=== PATIENT | female | born 1965 | race Caucasian/White ===

== ENCOUNTER 2018-01-14 12:22 | Inpatient (IN) | payer OTHER ==
[2018-01-14] VITALS (8 sets, daily range): BP systolic 105–120; BP diastolic 47–79
[~2018-01-14] VITALS: Ht 151.1 cm; Wt 67.9 kg
[2018-01-14] MEDS ORDERED: SODIUM CHLORIDE FLUSH 10ML SYR IVF ONE (13:00)
[2018-01-14 13:39] LABS: ALANINE AMINOTRANSFERASE 28 U/L (12-78); ALBUMIN 3.7 g/dL (3.4-5.0); ANION GAP 6 mmol/L (5-15); CALCIUM 8.6 mg/dL (8.5-10.1); CHLORIDE 103 mmol/L (98-107); CREATININE 1.09 mg/dL (0.55-1.02)
[2018-01-14 13:42] LABS: ALKALINE PHOSPHATASE 68 U/L (45-117); BILIRUBIN,TOTAL 1.3 mg/dL (0.2-1.0); TOTAL PROTEIN 7.4 g/dL (6.4-8.2)
[2018-01-14 13:44] LABS: MEAN CORPUSCULAR HEMOGLOBIN 41.9 pg (27.0-34.8); MEAN CORPUSCULAR HGB CONC 33.5 g/dL (32.4-35.8); MEAN CORPUSCULAR VOLUME 125.1 fL (80-100); MEAN PLATELET VOLUME 7.6 fL (7.4-10.4); PLATELET COUNT 177 x10^3/uL (130-400); RED BLOOD COUNT 1.24 x10^6/uL (3.82-5.3); RED CELL DISTRIBUTION WIDTH 28.4 % (9.6-15.2)
[2018-01-14] MEDS ORDERED: LIDOCAINE-MPF 1%, 5ML ONE (13:53)
[2018-01-14 14:08] LABS: MD YES
[2018-01-14 14:13] LABS: LYMPHS% (MANUAL) 29 % (22-44); MONOS#(MANUAL) 0.14 x10^3/uL (0.3-2.7); MONOS% (MANUAL) 2 % (2-9); NRBC % (MANUAL) 1 % (0-1); SEG#(MANUAL) 4.76 x10^3/uL (1.8-6.8); SEGS% (MANUAL) 69 % (42-75)
[2018-01-14 14:17] LABS: ANISOCYTOSIS 3+
[2018-01-14 14:18] LABS: MICROCYTOSIS 1+
[2018-01-14 14:20] LABS: HYPOCHROMIA 1+; OVALOCYTES 2+; POLYCHROMASIA 1+
[2018-01-14 14:24] LABS: <PLATELET ESTIMATE> ADEQUATE; <PLT MORPHOLOGY> NORMAL PLT MORPH
[2018-01-14] MEDS ORDERED: AZIT500T PO (15:03)
[2018-01-14 15:05] LABS: ABSOLUTE RETICS # 0.034 x10^6/uL (0.5-2.5); RETICULOCYTE COUNT % 2.69 % (0.5-1.5)
[2018-01-14 15:10] LABS: RED BLOOD COUNT 1.24 x10^6/uL (3.82-5.3)
[2018-01-14] MEDS ORDERED: ONDANSETRON 2MG/ML, 2ML IVPush PRN (15:30)
[2018-01-14] MEDS ORDERED: ONDANSETRON ODT 4 MG PO PRN (15:30)
[2018-01-14] MEDS ORDERED: LABETALOL 5MG/ML, 20ML IVPush PRN (15:30)
[2018-01-14 15:40] LABS: INTERNATIONAL NORMALIZED RATIO 1.11 (0.93-1.1); PROTHROMBIN TIME 11.5 Seconds (9.6-11.5)
[2018-01-14 16:12] LABS: FOLATE LEVEL 1.8 ng/mL (3.1-17.5); FREE T4 (FREE THYROXINE) 0.99 ng/dL (0.76-1.46)
[2018-01-14] MEDS ORDERED: CYANOCOBALAMIN 1,000 MCG/ML, 1ML IM ONE (18:00)
[2018-01-14] MEDS: FOLIC ACID 1 MG TABLET PO SCH (18:32)
[2018-01-14 19:02] LABS: CLOSTRIDIUM DIFFICILE ANTIGEN NEGATIVE; CLOSTRIDIUM DIFFICILE TOXIN NEGATIVE (Negative)
[2018-01-15 00:59] LABS: MICROSCOPIC INDICATED
[2018-01-15 01:06] LABS: CULTURE INDICATED? NO
[2018-01-15 02:07] VITALS: BP 117/76
[2018-01-15 05:19] LABS: MEAN CORPUSCULAR HEMOGLOBIN 36.3 pg (27.0-34.8); MEAN CORPUSCULAR HGB CONC 34.1 g/dL (32.4-35.8); MEAN CORPUSCULAR VOLUME 106.5 fL (80-100); MEAN PLATELET VOLUME 7.6 fL (7.4-10.4); PLATELET COUNT 161 x10^3/uL (130-400); RED CELL DISTRIBUTION WIDTH 33.5 % (9.6-15.2)
[2018-01-15 05:26] LABS: ALANINE AMINOTRANSFERASE 25 U/L (12-78); ALBUMIN 3.5 g/dL (3.4-5.0); ANION GAP 9 mmol/L (5-15); CALCIUM 8.1 mg/dL (8.5-10.1); CHLORIDE 106 mmol/L (98-107); CREATININE 0.98 mg/dL (0.55-1.02)
[2018-01-15 05:28] LABS: ALKALINE PHOSPHATASE 64 U/L (45-117); BILIRUBIN,TOTAL 1.4 mg/dL (0.2-1.0); TOTAL PROTEIN 7.1 g/dL (6.4-8.2)
[2018-01-15 05:49] LABS: BASOPHILS # (AUTO) 0.01 x10^3/uL (0-0.1); BASOPHILS % (AUTO) 0 % (0-1); EOSINOPHILS # (AUTO) 0.14 x10^3/uL (0-0.4); EOSINOPHILS % (AUTO) 2 % (1-7); LYMPHOCYTES # (AUTO) 1.67 x10^3/uL (1-3.4); LYMPHOCYTES % (AUTO) 29 % (22-44); MD SCAN; MONOCYTES # (AUTO) 0.18 x10^3/uL (0.2-0.8); MONOCYTES % (AUTO) 3 % (2-9); NEUTROPHILS # (AUTO) 3.86 x10^3/uL (1.8-6.8); NEUTROPHILS % (AUTO) 66 % (42-75)
[2018-01-15 07:51] VITALS: BP 113/74
[2018-01-15] MEDS ORDERED: FOLIC ACID 1 MG TABLET PO SCH (09:00)
[2018-01-15] MEDS ORDERED: CYANOCOBALAMIN 1,000 MCG/ML, 1ML IM ONE (10:00)
[2018-01-15] MEDS ORDERED: OMNIPAQUE 350 MG/ML, 100ML BOTTLE ONE (11:35)
[2018-01-15 12:29] VITALS: BP 129/85
[2018-01-15] MEDS: FOLIC ACID 1 MG TABLET PO SCH (12:29)
[2018-01-15] MEDS: CEFTRIAXONE PMX 1GM/50ML 50 ML IV SCH (17:47)
[2018-01-15 17:56] LABS: MEAN CORPUSCULAR HEMOGLOBIN 36.1 pg (27.0-34.8); MEAN CORPUSCULAR HGB CONC 33.8 g/dL (32.4-35.8); MEAN CORPUSCULAR VOLUME 106.9 fL (80-100); MEAN PLATELET VOLUME 7.6 fL (7.4-10.4); PLATELET COUNT 179 x10^3/uL (130-400); RED BLOOD COUNT 2.41 x10^6/uL (3.82-5.3); RED CELL DISTRIBUTION WIDTH 33.8 % (9.6-15.2)
[2018-01-15 18:05] LABS: ALANINE AMINOTRANSFERASE 27 U/L (12-78); ALBUMIN 3.6 g/dL (3.4-5.0); ANION GAP 10 mmol/L (5-15); CALCIUM 8.4 mg/dL (8.5-10.1); CHLORIDE 104 mmol/L (98-107); CREATININE 0.99 mg/dL (0.55-1.02)
[2018-01-15 18:07] LABS: ALKALINE PHOSPHATASE 70 U/L (45-117); BILIRUBIN,TOTAL 1.4 mg/dL (0.2-1.0); TOTAL PROTEIN 7.4 g/dL (6.4-8.2)
[2018-01-15 18:12] LABS: ANISOCYTOSIS 3+; BASOPHILS # (AUTO) 0.04 x10^3/uL (0-0.1); BASOPHILS % (AUTO) 1 % (0-1); EOSINOPHILS # (AUTO) 0.18 x10^3/uL (0-0.4); EOSINOPHILS % (AUTO) 2 % (1-7); LYMPHOCYTES # (AUTO) 1.68 x10^3/uL (1-3.4); LYMPHOCYTES % (AUTO) 20 % (22-44); MD MORPH REVIEW ONLY; MONOCYTES # (AUTO) 0.15 x10^3/uL (0.2-0.8); MONOCYTES % (AUTO) 2 % (2-9); NEUTROPHILS # (AUTO) 6.34 x10^3/uL (1.8-6.8); NEUTROPHILS % (AUTO) 76 % (42-75)
[2018-01-15 18:13] LABS: MICROCYTOSIS 1+; OVALOCYTES 2+; POLYCHROMASIA 1+
[2018-01-15 18:14] LABS: <PLATELET ESTIMATE> ADEQUATE; <PLT MORPHOLOGY> NORMAL PLT MORPH
[2018-01-15 18:15] LABS: TEAR DROPS 1+
[2018-01-15] MEDS: METRONIDAZOLE PMX 500MG/100ML 100 ML IV SCH (18:42)
[2018-01-15 19:44] VITALS: BP 99/59
[2018-01-15] MEDS ORDERED: LORazepam 1MG TABLET PO PRN (20:30)
[2018-01-16] MEDS: METRONIDAZOLE PMX 500MG/100ML 100 ML IV SCH ×3 (01:43→19:24)
[2018-01-16 02:15] VITALS: BP 108/69
[2018-01-16 07:14] LABS: MEAN CORPUSCULAR HEMOGLOBIN 35.5 pg (27.0-34.8); MEAN CORPUSCULAR HGB CONC 33.1 g/dL (32.4-35.8); MEAN CORPUSCULAR VOLUME 107.3 fL (80-100); MEAN PLATELET VOLUME 7.5 fL (7.4-10.4); PLATELET COUNT 175 x10^3/uL (130-400); RED BLOOD COUNT 2.27 x10^6/uL (3.82-5.3); RED CELL DISTRIBUTION WIDTH 33.5 % (9.6-15.2)
[2018-01-16 07:26] LABS: ALBUMIN 3.4 g/dL (3.4-5.0); ANION GAP 9 mmol/L (5-15); CALCIUM 8.3 mg/dL (8.5-10.1); CHLORIDE 107 mmol/L (98-107)
[2018-01-16 07:29] VITALS: BP 112/73
[2018-01-16 07:38] LABS: BASOPHILS # (AUTO) 0.03 x10^3/uL (0-0.1); BASOPHILS % (AUTO) 0 % (0-1); EOSINOPHILS # (AUTO) 0.21 x10^3/uL (0-0.4); EOSINOPHILS % (AUTO) 3 % (1-7); LYMPHOCYTES # (AUTO) 1.45 x10^3/uL (1-3.4); LYMPHOCYTES % (AUTO) 20 % (22-44); MD SCAN; MONOCYTES # (AUTO) 0.47 x10^3/uL (0.2-0.8); MONOCYTES % (AUTO) 6 % (2-9); NEUTROPHILS # (AUTO) 5.12 x10^3/uL (1.8-6.8); NEUTROPHILS % (AUTO) 70 % (42-75)
[2018-01-16 08:07] LABS: ALANINE AMINOTRANSFERASE 22 U/L (12-78)
[2018-01-16 08:08] LABS: ALKALINE PHOSPHATASE 62 U/L (45-117); TOTAL PROTEIN 6.8 g/dL (6.4-8.2)
[2018-01-16 08:09] LABS: CREATININE 0.91 mg/dL (0.55-1.02)
[2018-01-16] MEDS ORDERED: CYANOCOBALAMIN 1,000 MCG/ML, 1ML IM ONE (08:30)
[2018-01-16] MEDS: FOLIC ACID 1 MG TABLET PO SCH (09:51)
[2018-01-16 12:49] VITALS: BP 117/74
[2018-01-16] MEDS ORDERED: LORazepam 0.5MG TABLET PO PRN (16:30)
[2018-01-16] MEDS: CEFTRIAXONE PMX 1GM/50ML 50 ML IV SCH (18:13)
[2018-01-16 19:18] VITALS: BP 122/74
[2018-01-17 02:17] VITALS: BP 105/65
[2018-01-17] MEDS: METRONIDAZOLE PMX 500MG/100ML 100 ML IV SCH ×2 (02:57→10:40)
[2018-01-17 04:45] LABS: MEAN CORPUSCULAR HEMOGLOBIN 36.4 pg (27.0-34.8); MEAN CORPUSCULAR HGB CONC 33.6 g/dL (32.4-35.8); MEAN CORPUSCULAR VOLUME 108.3 fL (80-100); MEAN PLATELET VOLUME 7.6 fL (7.4-10.4); PLATELET COUNT 186 x10^3/uL (130-400); RED BLOOD COUNT 2.15 x10^6/uL (3.82-5.3); RED CELL DISTRIBUTION WIDTH 33.6 % (9.6-15.2)
[2018-01-17 04:49] LABS: ALBUMIN 3.1 g/dL (3.4-5.0); ANION GAP 10 mmol/L (5-15); CALCIUM 7.8 mg/dL (8.5-10.1); CHLORIDE 110 mmol/L (98-107); CREATININE 0.86 mg/dL (0.55-1.02)
[2018-01-17 06:04] LABS: MD YES
[2018-01-17 06:05] LABS: EOS#(MANUAL) 0.45 x10^3/uL (0.0-0.4); EOS% (MANUAL) 5 % (1-7); LYMPH#(MANUAL) 1.62 x10^3/uL (1-3.4); LYMPHS% (MANUAL) 18 % (22-44); MONOS#(MANUAL) 0.63 x10^3/uL (0.3-2.7); MONOS% (MANUAL) 7 % (2-9); SEGS% (MANUAL) 70 % (42-75)
[2018-01-17 06:06] LABS: ANISOCYTOSIS 3+; MICROCYTOSIS 1+; POLYCHROMASIA 1+
[2018-01-17 06:07] LABS: OVALOCYTES 1+; TEAR DROPS 1+
[2018-01-17 06:08] LABS: BASOPHILLIC STIPPLING 1+
[2018-01-17 06:11] LABS: <PLATELET ESTIMATE> ADEQUATE; <PLT MORPHOLOGY> NORMAL PLT MORPH
[2018-01-17 07:24] VITALS: BP 108/69
[2018-01-17] MEDS ORDERED: LIDOCAINE-MPF 1%, 5ML ONE (07:39)
[2018-01-17] MEDS ORDERED: MIDAZOLAM 1 MG/ML, 5ML ONE (07:56)
[2018-01-17] MEDS ORDERED: FLUMAZENIL 0.1 MG/1 ML, 5ML ONE (07:56)
[2018-01-17] MEDS ORDERED: FENTANYL PF 100 MCG/2ML ONE (07:56)
[2018-01-17] MEDS ORDERED: NALOXONE 1 MG/ML, 2ML ONE (07:57)
[2018-01-17] MEDS: FOLIC ACID 1 MG TABLET PO SCH (10:41)
[2018-01-17] MEDS ORDERED: FOLI-17 PO (11:03)
[2018-01-17] MEDS ORDERED: CYAN10002 PO (11:03)
[2018-01-17] MEDS ORDERED: CIPR500T87 PO (11:07)
[2018-01-17] MEDS ORDERED: METR500T PO (11:10)
[2018-01-17] MEDS ORDERED: CYANOCOBALAMIN 1,000 MCG/ML, 1ML IM ONE (12:30)
[2018-01-17 13:30] VITALS: BP 99/62
== END 2018-01-17 16:00 | disposition home or self-care (01) | DRG 812 ==
LOC: MERGE 15:17 → ED 15:17 → EDIP 15:41 → 3NW 15:59
PROVIDERS: ADMIT Hospitalist; ATTEND Hospitalist
PROC: 30233N1 Transfusion of Nonautologous Red Blood Cells into Peripheral Vein, Percutaneous Approach (ICD-10-PCS; 2018-01-14)
PROC: 07DR3ZX Extraction of Iliac Bone Marrow, Percutaneous Approach, Diagnostic (ICD-10-PCS; principal; 2018-01-17)
DX: D53.9 Nutritional anemia, unspecified (principal); K52.9 Noninfective gastroenteritis and colitis, unspecified; R74.0 Nonspecific elevation of levels of transaminase and lactic acid dehydrogenase [LDH]; N19 Unspecified kidney failure; Z90.710 Acquired absence of both cervix and uterus
CPT/HCPCS: 36415; 36430; 38222; 71260; 74177; 77012; 80048; 80053; 81001; 82040; 82607; 82728; 82746; 83010; 83540; 83550; 83615; 83735; 83921; 84100; 84439; 84443; 85025; 85045; 85060; 85097; 85610; 85730; 86340; 86850; 86880; 86900; 86923; 87324; 88237; 88264; 88280; 88305; 88311; 88313; 93005; 99156; 99157; 99285; G0378; J0696; J2250; J3010; Q9967; J2310; J3420; P9016